=== PATIENT | male | born 1940 | race Caucasian/White ===

== ENCOUNTER 2017-01-07 15:03 | Emergency (ER) | payer MEDICARE, OTHER ==
[2017-01-07 15:20] VITALS: BP 147/82
--- NOTE | 2017-01-07 16:36 | EDM.PDOC ---
ED HPI GENERAL MEDICAL PROBLEM - General Chief Complaint: Abdominal Pain Stated Complaint: BLACK STOOLS Time Seen by Provider: 01/07/17 15:35 Source of Information: Reports: Patient History Limitations: Reports: No Limitations - History of Present Illness INITIAL COMMENTS - FREE TEXT/NARRATIVE: 76-year-old male straining with constipation for the last 48 hours. He feels he needs to have a bowel movement has a large blockage in the rectum. He has tried a Dulcolax suppository without success. No fevers or chills, no diarrhea, no nausea or vomiting. Onset: Gradual (Over the past 2-3 days) Severity: Moderate Associated Symptoms: Reports: No Other Symptoms Lower Abdominal Pain Score (Numeric/FACES): 2 - Related Data Allergies Allergy/AdvReac Type Severity Reaction Status Date / Time No Known Allergies Allergy Verified 01/07/17 15:25 Home Meds: Home Meds Albuterol [IJD: Ventolin HFA] 01/07/17 [History] Aspirin 01/07/17 [History] Fish Oil/[place]-3 Fatty Acids [Fish Oil 1,000 MG] 01/07/17 [History] Tamsulosin [Flomax] 01/07/17 [History] Past Medical History Respiratory History: Reports: Asthma, Other (See Below) - Infectious Disease History Infectious Disease History: Reports: Chicken Pox, Measles, Mumps - Past Surgical History HEENT Surgical History: Reports: Tonsillectomy Male Surgical History: Reports: Other (See Below) Other Male Surgeries/Procedures: kidney surgery Social & Family History - Tobacco Use Smoking Status *Q: Never Smoker - Caffeine Use Caffeine Use: Reports: Soda - Recreational Drug Use Recreational Drug Use: No ED ROS GENERAL - Review of Systems Review Of Systems: See Below Constitutional: Denies: Fever, Chills, Malaise HEENT: Reports: No Symptoms Respiratory: Denies: Shortness of Breath, Cough Cardiovascular: Denies: Chest Pain GI/Abdominal: Reports: Abdominal Pain (Especially lower and rectal) Skin: Reports: No Symptoms Neurological: Denies: Headache Psychiatric: Reports: No Symptoms ED EXAM, GI/ABD - Physical Exam Exam: See Below Exam Limited By: No Limitations General Appearance: Alert, No Apparent Distress (Patient is not distressed but appears uncomfortable) Respiratory/Chest: No Respiratory Distress, Lungs Clear Cardiovascular: Regular Rate, Rhythm GI/Abdominal Exam: Soft, Other (Some mild discomfort with palpation of the suprapubic area, rectal exam below) Rectal (Males) Exam: Fecal Impaction (Large hard rectal fecal impaction is present. This was digitally loosened.) Neurological: Alert, Oriented Psychiatric: Normal Affect, Normal Mood Skin Exam: Warm, Dry Course - Vital Signs Last Recorded V/S: Last Vital Signs Temp 98.2 F 01/07/17 15:24 Pulse 97 01/07/17 15:24 Resp 16 01/07/17 15:24 BP 147/82 H 01/07/17 15:24 Pulse Ox 95 01/07/17 15:24 - Re-Assessments/Exams Free Text/Narrative Re-Assessment/Exam: 01/09/17 07:09 Patient was given a half of a tap water enema, and within 20 minutes had a very large bowel movement with resolving symptoms. Departure - Departure Time of Disposition: 16:40 Disposition: Home, Self-Care 01 Condition: Good Clinical Impression: Constipation Qualifiers: Constipation type: unspecified constipation type Qualified Code(s): K59.00 - Constipation, unspecified - Discharge Information Instructions: Constipation, Adult, [id number] Referrals: PCP,None [Primary Care Provider] - Forms: ED Department Discharge Care Plan Goals: Stool softeners, fiber, lots of water may help avoid this in the future. Return any time if worsening or concerns.
== END 2017-01-07 16:40 | disposition home or self-care (01) ==
LOC: JP.ED 15:03
DX: K59.00 Constipation, unspecified (principal); J45.909 Unspecified asthma, uncomplicated; Z98.890 Other specified postprocedural states; Z79.82 Long term (current) use of aspirin
CPT/HCPCS: 99283; 99284